=== PATIENT | male | born 1975 ===

== ENCOUNTER 2018-09-12 10:21 | Inpatient (IN) | payer OTHER ==
--- NOTE | 2018-09-12 11:06 | C.PDOC ---
History Of Present Illness 43 year old male with history of a nontender mass to his right posterior neck for the past weeks, is sent to the ED by Dr. Paredes for surgical removal. Patient denies fever, chills, neck pain/stiffness or any active complaints at t his time. Time Seen by Provider: 09/12/18 10:33 Chief Complaint (Nursing): Medical Clearance History Per: Patient History/Exam Limitations: no limitations Onset/Duration Of Symptoms: Other (few weeks ) Current Symptoms Are (Timing): Still Present Additional History Per: Patient Past Medical History Reviewed: Historical Data, Nursing Documentation, Vital Signs Vital Signs: Last Vital Signs Temp 99.4 F 09/12/18 10:24 Pulse 86 09/12/18 10:24 Resp 20 09/12/18 10:24 BP 111/75 09/12/18 10:24 Pulse Ox 96 09/12/18 10:24 - Medical History PMH: No Chronic Diseases Surgical History: No Surg Hx Family History: States: Unknown Family Hx - Social History Hx Alcohol Use: Yes Hx Substance Use: Yes (Marijuana) - Immunization History Hx Tetanus Toxoid Vaccination: No Hx Influenza Vaccination: No Hx Pneumococcal Vaccination: No Review Of Systems Constitutional: Negative for: Fever, Chills Musculoskeletal: Negative for: Neck Pain Skin: Positive for: Other (nontender mass to right posterior neck ) Physical Exam - Physical Exam Appears: Non-toxic, No Acute Distress Skin: Normal Color, Warm, Dry, Other (soft, 3x3cm nontender mass to left posterior neck. no erythema, no fluctuance ) Head: Atraumatic, Normacephalic Eye(s): bilateral: Normal Inspection Oral Mucosa: Moist Neck: Normal ROM, Supple Chest: Symmetrical, No Deformity, No Tenderness Cardiovascular: Rhythm Regular, No Murmur Respiratory: Normal Breath Sounds, No Rales, No Rhonchi, No Wheezing Extremity: Normal ROM, Capillary Refill (less than 2 seconds ) Neurological/Psych: Oriented x3, Normal Speech, Normal Cognition ED Course And Treatment - Laboratory Results Result Diagrams: 09/12/18 11:13 O2 Sat by Pulse Oximetry: 96 (on RA) Pulse Ox Interpretation: Normal Disposition - Disposition Disposition: HOSPITALIZED Disposition Time: 11:20 Condition: STABLE Forms: [employer] (Japanese) - Clinical Impression Clinical Impression: Lipoma - 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 - Scribe Statement The provider has reviewed the documentation as recorded by the Scribe (Catrina Buitrago) All medical record entries made by the Scribe were at my direction and personally dictated by me. I have reviewed the chart and agree that the record accurately reflects my personal performance of the history, physical exam, medical decision making, and the department course for this patient. I have also personally directed, reviewed, and agree with the discharge instructions and di sposition.
[2018-09-12 11:20] LABS: BASO % 0.7 % (0.0-2.0); EOS % 0.4 % (0.0-4.0); HEMOGLOBIN 14.8 g/dL (12.0-18.0); LYMPH # 1.7 K/uL (1.0-4.3); LYMPH % 34.9 % (20.0-40.0); MEAN CELL VOLUME 81.6 fL (80.0-94.0); MEAN CORPUSCULAR HEMOGLOBIN 26.5 pg (27.0-31.0); MEAN CORPUSCULAR HGB CONC 32.5 g/dL (33.0-37.0); MEAN PLATELET VOLUME 9.4 fL (7.2-11.7); MONO # 0.3 K/uL (0.0-0.8); MONO % 5.8 % (0.0-10.0); NEUT # 2.8 K/uL (1.8-7.0); NEUT % 58.2 % (50.0-75.0); NRBC % 0.1 % (0.0-2.0); RBC 5.59 Mil/uL (4.40-5.90); WHITE BLOOD COUNT 4.8 K/uL (4.8-10.8)
[2018-09-12 11:26] LABS: INR 1.1; PROTHROMBIN TIME 12.2 SECONDS (9.7-12.2)
[2018-09-12 11:33] LABS: ALB/GLOB RATIO 1.4 (1.0-2.1); ALBUMIN 4.8 g/dL (3.5-5.0); ALT/SGPT 22 U/L (21-72); AST/SGOT 27 U/L (17-59); BLOOD UREA NITROGEN 15 mg/dL (9-20); CALCIUM 9.4 mg/dl (8.6-10.4); GFR NON-AFRICAN AMERICAN > 60
[2018-09-12 12:20] LABS: SQUAMOUS EPITHIAL 1 /hpf (0-5); URINE BILIRUBIN NEGATIVE (NEGATIVE); URINE BLOOD NEGATIVE (NEGATIVE); URINE CLARITY Hazy (Clear); URINE COLOR Yellow (YELLOW); URINE GLUCOSE (UA) NORMAL (Normal); URINE LEUKOCYTE ESTERASE NEG Leu/uL (Negative); URINE PROTEIN NEGATIVE (NEGATIVE); URINE UROBILINOGEN NORMAL mg/dL (0.2-1.0)
[2018-09-12] MEDS ORDERED: ceFAZolin 1 gm in NS 1 GM/100 ML BAG IVPB ONE (13:38)
[2018-09-12] MEDS ORDERED: Midazolam 2 MG/2 ML VIAL ONE (14:16)
[2018-09-12] MEDS ORDERED: Propofol 10 mg/ml Inj (20 ML) ONE (14:16)
[2018-09-12] MEDS ORDERED: Bupivacaine 0.25% 20 ML INJ IJ ONE (14:44)
[2018-09-12] MEDS ORDERED: HYDROmorphone 0.5 mg/0.5 ml ISec IVP PRN (15:07)
[2018-09-12] MEDS ORDERED: Oxycodone/Acetaminophen 5/325 mg Tab PO PRN (15:22)
--- NOTE | 2018-09-12 19:36 | CP.PCM.CON ---
History of Present Illness - History of Present Illness History of Present Illness: PGY-1 Nuris Vann D.O. Medicine Consult note for Dr. Nielsen's service: Patient is a 43 yo male who presented with R posterior neck mass. Patient states he first noticed the mass about 6 months ago. Since that time, it has fluctuated in size. He denies pain. Denies trouble moving his neck. Denies bleeding or drainage from mass. Denies ever having this before. Patient said he went to see fine arts instructor who recommended he see a surgeon for removal. Patient was seen post-op, so as per ED note, mass was 3x3 cm, nontender, soft, without erythema or fluctuance. Patient denies fevers/chills. 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, drinks 1 beer every other day, smokes 2 cigarettes per days x 24 years, last used cocaine 2 years ago, last used marijuana 2 months ago PMD: Morales Review of Systems - Constitutional Constitutional: absent: Chills, Fever, Headache - EENT Eyes: absent: Change in Vision Ears: absent: Decreased Hearing Nose/Mouth/Throat: absent: Nasal Congestion - Cardiovascular Cardiovascular: absent: Chest Pain, Palpitations - Respiratory Respiratory: absent: Cough, Dyspnea - Gastrointestinal Gastrointestinal: absent: Abdominal Pain, Constipation, Diarrhea, Nausea, Vomiting - Genitourinary Genitourinary: absent: Dysuria, Hematuria - Musculoskeletal Musculoskeletal: Neck Pain (post-op tenderness). absent: Limited Range of Motion, Numbness, Stiffness, Tingling - Integumentary Integumentary: Lesions (post-op). absent: Rash - Neurological Neurological: absent: Dizziness, Numbness, Focal Weakness, Sensory Deficit, Weakness - Psychiatric Psychiatric: absent: Anxiety, Depression - Endocrine Endocrine: absent: Fatigue - Hematologic/Lymphatic Hematologic: absent: Easy Bleeding, Easy Bruising, Lymphadenopathy Past Patient History - Infectious Disease Hx of Infectious Diseases: None - Tetanus Immunizations Tetanus Immunization: Unknown - Past Medical History & Family History Past Medical History?: No Past Family History: Reviewed and not pertinent - Past Social History Smoking Status: Light Smoker < 10 Cigarettes Daily Chewing Tobacco Use: No Cigar Use: No Alcohol: < 2 Drinks/Day Drugs: Cannabis Home Situation {Lives}: With Family - PSYCHIATRIC Hx Substance Use: Yes (Marijuana) - SURGICAL HISTORY Hx Surgeries: No - ANESTHESIA Hx Anesthesia: No Meds Allergies/Adverse Reactions: Allergies Allergy/AdvReac Type Severity Reaction Status Date / Time No Known Allergies Allergy Verified 09/12/18 10:28 - Medications Medications: Current Medications Cefazolin Sodium 1,000 mg/ (Sodium Chloride) 100 mls @ 100 mls/hr IVPB Q8H PRISCILA; Protocol Ketorolac Tromethamine (Toradol) 30 mg IVP Q6 PRN PRN Reason: pain Stop: 09/17/18 15:23 Ondansetron HCl (Zofran Inj) 4 mg IVP Q6 PRN PRN Reason: Nausea/Vomiting Oxycodone/Acetaminophen (Percocet 5/325 Mg Tab) 2 tab PO Q4H PRN PRN Reason: pain Stop: 09/15/18 15:23 Physical Exam - Constitutional Appears: Non-toxic, No Acute Distress - Head Exam Head Exam: ATRAUMATIC, NORMAL INSPECTION - Eye Exam Eye Exam: EOMI, Normal appearance, PERRL - ENT Exam ENT Exam: Mucous Membranes Moist - Neck Exam Neck exam: Positive for: Full Rom, Tenderness (over incision). Negative for: Lymphadenopathy Additional comments: R posterior neck- 2 vivi in surgical incision site, no drainage or active bleeding, covered in clean dry bandage - Respiratory Exam Respiratory Exam: Clear to Auscultation Bilateral, NORMAL BREATHING PATTERN - Cardiovascular Exam Cardiovascular Exam: RRR, +S1, +S2 - GI/Abdominal Exam GI & Abdominal Exam: Soft. absent: Distended, Tenderness - Extremities Exam Extremities exam: Positive for: normal inspection - Back Exam Back exam: NORMAL INSPECTION - Neurological Exam Neurological exam: Alert, CN II-XII Intact, Oriented x3 - Psychiatric Exam Psychiatric exam: Normal Affect, Normal Mood - Skin Skin Exam: Dry, Normal Color, Warm Results - Vital Signs Recent Vital Signs: Last Vital Signs Temp 97.6 F 09/12/18 16:30 Pulse 61 09/12/18 16:30 Resp 13 09/12/18 16:30 BP 121/86 09/12/18 16:30 Pulse Ox 96 09/12/18 16:30 - Labs Result Diagrams: 09/12/18 11:13 09/12/18 11:13 Labs: Laboratory Results - last 24 hr 09/12/18 09/12/18 09/12/18 11:13 11:13 11:13 WBC 4.8 RBC 5.59 Hgb 14.8 Hct 45.7 MCV 81.6 MCH 26.5 L MCHC 32.5 L RDW 14.0 Plt Count 179 MPV 9.4 Neut % (Auto) 58.2 Lymph % (Auto) 34.9 Sebastian % (Auto) 5.8 Eos % (Auto) 0.4 Baso % (Auto) 0.7 Neut # (Auto) 2.8 Lymph # (Auto) 1.7 Sebastian # (Auto) 0.3 Eos # (Auto) 0.0 Baso # (Auto) 0.0 PT 12.2 INR 1.1 APTT 32 Sodium 136 Potassium 4.1 Chloride 101 Carbon Dioxide 25 Anion Gap 13 BUN 15 Creatinine 0.8 Est GFR ( Amer) > 60 Est GFR (Non-Af Amer) > 60 Random Glucose 91 Calcium 9.4 Total Bilirubin 0.8 AST 27 ALT 22 Alkaline Phosphatase 85 Total Protein 8.1 Albumin 4.8 Globulin 3.4 Albumin/Globulin Ratio 1.4 Urine Color Urine Clarity Urine pH Ur Specific [place] Urine Protein Urine Glucose (UA) Urine Ketones Urine Blood Urine Nitrate Urine Bilirubin Urine Urobilinogen Ur Leukocyte Esterase Urine WBC (Auto) Urine RBC (Auto) Ur Squamous Epith Cells 09/12/18 12:10 WBC RBC Hgb Hct MCV MCH MCHC RDW Plt Count MPV Neut % (Auto) Lymph % (Auto) Sebastian % (Auto) Eos % (Auto) Baso % (Auto) Neut # (Auto) Lymph # (Auto) Sebastian # (Auto) Eos # (Auto) Baso # (Auto) PT INR APTT Sodium Potassium Chloride Carbon Dioxide Anion Gap BUN Creatinine Est GFR ( Amer) Est GFR (Non-Af Amer) Random Glucose Calcium Total Bilirubin AST ALT Alkaline Phosphatase Total Protein Albumin Globulin Albumin/Globulin Ratio Urine Color Yellow Urine Clarity Hazy Urine pH 5.0 Ur Specific [place] 1.025 Urine Protein Negative Urine Glucose (UA) Normal Urine Ketones Negative Urine Blood Negative Urine Nitrate Negative Urine Bilirubin Negative Urine Urobilinogen Normal Ur Leukocyte Esterase Neg Urine WBC (Auto) 1 Urine RBC (Auto) 1 Ur Squamous Epith Cells 1 Assessment & Plan - Assessment and Plan (Free Text) Assessment: Patient is a 43 yo male who presented with R posterior neck mass. Removed by Dr. Paredes today. Plan: Right posterior neck mass- suspect lipoma - Afebrile, no leukocytosis - POD#0- removal this afternoon 2/ - Cefazolin 1 g IV Q8H- started 09/12 - Zofran 4 mg IV Q6H PRN - Toradol 30 mg IV Q6H PRN - Percocet 2 tabs Q4H PRN - f/u surgical pathology - Surgery primary (Reggie) Ppx: VTE: SCDs GI: not indicated Code status: full code Case discussed with attending, Dr. Nielsen.
[2018-09-12 20:56] LABS: INR 1.1; PROTHROMBIN TIME 12.5 SECONDS (9.7-12.2)
--- NOTE | 2018-09-12 23:51 | OP ---
PROCEDURE DATE: 09/12/2018 PREOPERATIVE DIAGNOSIS: Infected mass, posterior neck. POSTOPERATIVE DIAGNOSIS: Infected mass, posterior neck. PROCEDURE PERFORMED: Wide and deep excision of infected mass of the posterior neck with advancement flap closure. SURGEON: Wing Paredes MD ANESTHESIA: General. BLOOD LOSS: Less than 30 mL. POSTOPERATIVE CONDITION: Stable. INDICATIONS FOR SURGERY: This is a 43-year-old male with an enlarging mass of his neck, treated with antibiotics. He now presents for surgical management. DESCRIPTION OF PROCEDURE: The patient was taken to the operating room. IV sedation was administered. The patient was placed in the prone position. The posterior neck area was prepped and draped. Local anesthesia was infiltrated, and a generous elliptical incision was made surrounding the 3 cm mass. It was carried down into the fascia and muscle layer in order to excise the mass completely. Some pus was noted from the mass while it was being excised. The wound was copiously irrigated with saline solution. Full-thickness tissue flaps were made and an advancement flap closure was performed using multiple layers of Monocryl also closing the space. The skin was closed loosely with clips and dressed with bacitracin ointment. The patient tolerated the procedure well and returned to the recovery room in stable condition. Wing Paredes MD
[2018-09-13 01:25] VITALS: PULSE 78; RESP 20
[2018-09-13 07:18] LABS: BASO % 0.4 % (0.0-2.0); EOS % 0.7 % (0.0-4.0); LYMPH # 1.6 K/uL (1.0-4.3); LYMPH % 31.7 % (20.0-40.0); MEAN CELL VOLUME 81.9 fL (80.0-94.0); MEAN CORPUSCULAR HEMOGLOBIN 26.3 pg (27.0-31.0); MEAN CORPUSCULAR HGB CONC 32.1 g/dL (33.0-37.0); MEAN PLATELET VOLUME 9.2 fL (7.2-11.7); MONO # 0.3 K/uL (0.0-0.8); MONO % 5.8 % (0.0-10.0); NEUT # 3.1 K/uL (1.8-7.0); NEUT % 61.4 % (50.0-75.0); NRBC % 0.2 % (0.0-2.0); RBC 5.32 Mil/uL (4.40-5.90); RED CELL DISTRIBUTION WIDTH 14.2 % (11.5-14.5)
[2018-09-13 07:43] LABS: ALB/GLOB RATIO 1.5 (1.0-2.1); ALBUMIN 4.2 g/dL (3.5-5.0); ALT/SGPT 23 U/L (21-72); AST/SGOT 24 U/L (17-59); BLOOD UREA NITROGEN 14 mg/dL (9-20); GFR NON-AFRICAN AMERICAN > 60
--- NOTE | 2018-09-13 08:11 | RAD ---
HISTORY: pre-op COMPARISON: None available. TECHNIQUE: Chest, one view. FINDINGS: LUNGS: No focal consolidation. Please note that chest x-ray has limited sensitivity for the detection of pulmonary masses. PLEURA: No significant pleural effusion identified. No definite pneumothorax . CARDIOVASCULAR: The cardiomediastinal silhouette appears within normal limits of size. No significant atherosclerotic calcification present. OSSEOUS STRUCTURES: No acute osseous abnormality identified. VISUALIZED UPPER ABDOMEN: Unremarkable. OTHER FINDINGS: None. IMPRESSION: No focal consolidation.
[2018-09-13 08:29] VITALS: BP 107/73; TEMP 98.2; O2SAT 95
[2018-09-13] MEDS ORDERED: Pneumococcal 23-Valent Vaccine IM ONE ×2 (11:18→15:00)
[2018-09-13] MEDS ORDERED: Influenza Vaccine 60 mcg/0.5 mL SYR (4YR UP) IM ONE ×2 (11:18→15:00)
--- NOTE | 2018-09-13 13:27 | CP.PCM.PN ---
Subjective - Date & Time of Evaluation Date of Evaluation: 09/13/18 Time of Evaluation: 09:00 - Subjective Subjective: Justice Reyna PGY1 Progress Note for Dr. Nielsen Patient was examined at bedside this morning. He has no complaints today. He says he is able to tolerate food well. He says he has not had a bowel movement yet. He denies fever, chill, abdominal pain, nausea, vomiting, shortness of breath, chest pain. Objective - Vital Signs/Intake and Output Vital Signs (last 24 hours): Temp Pulse Resp BP Pulse Ox 98.2 F 78 20 107/73 95 09/13/18 08:28 09/13/18 08:28 09/13/18 08:28 09/13/18 08:28 09/13/18 08:28 Intake and Output: 09/13/18 09/13/18 06:59 18:59 Intake Total 300 100 Balance 300 100 - Labs Labs: 09/13/18 07:06 09/13/18 07:06 PT 12.5 SECONDS (9.7-12.2) H 09/12/18 20:39 INR 1.1 09/12/18 20:39 APTT 34 SECONDS (21-34) 09/12/18 20:39 - Constitutional Appears: Well, No Acute Distress - Head Exam Head Exam: ATRAUMATIC, NORMOCEPHALIC - Eye Exam Eye Exam: EOMI, Normal appearance, PERRL Pupil Exam: NORMAL ACCOMODATION - ENT Exam ENT Exam: Mucous Membranes Moist - Neck Exam Additional comments: R surgical site clean, dry, intact - Respiratory Exam Respiratory Exam: Clear to Ausculation Bilateral, NORMAL BREATHING PATTERN. absent: Rales, Rhonchi, Wheezes - GI/Abdominal Exam GI & Abdominal Exam: Soft, Normal Bowel Sounds. absent: Distended, Tenderness - Extremities Exam Extremities Exam: Normal Inspection. absent: Pedal Edema - Neurological Exam Neurological Exam: Alert, Awake, Oriented x3 - Psychiatric Exam Psychiatric exam: Normal Affect, Normal Mood - Skin Skin Exam: Normal Color Assessment and Plan - Assessment and Plan (Free Text) Assessment: Patient is a 43 yo male who presented with R posterior neck mass. Removed by Dr. Paredes 09/12/18. Plan: Right posterior neck mass- suspect lipoma - Afebrile, no leukocytosis - POD#1- removal 09/12 - Cefazolin 1 g IV Q8H- started 09/12 - Zofran 4 mg IV Q6H PRN - Toradol 30 mg IV Q6H PRN - Percocet 2 tabs Q4H PRN - f/u surgical pathology - Surgery primary (Reggie) Ppx: VTE: SCDs GI: not indicated Code status: full code Case discussed with attending, Dr. Nielsen.
[2018-09-15] MEDS ORDERED: Influenza Vaccine 60 mcg/0.5 mL SYR (4YR UP) IM ONE (20:27)
[2018-09-15] MEDS ORDERED: Pneumococcal 23-Valent Vaccine IM ONE (20:27)
== END 2018-09-13 11:49 | disposition home or self-care (01) | DRG 572 ==
LOC: C.ER 10:21 → C.3T 10:21 → C.SDS 11:34 → C.3T 15:22
PROVIDERS: ADMIT Surgery; ATTEND Surgery
PROC: 0JB40ZZ Excision of Right Neck Subcutaneous Tissue and Fascia, Open Approach (ICD-10-PCS; principal; 2018-09-12 14:15)
DX: R22.1 Localized swelling, mass and lump, neck (principal); F17.210 Nicotine dependence, cigarettes, uncomplicated